=== PATIENT | female | born 2005 | race Caucasian/White ===

== ENCOUNTER 2024-08-08 21:17 | Emergency (ER) | payer OTHER, SELFPAY ==
[2024-08-08] VITALS (8 sets, daily range): BP systolic 111–139; BP diastolic 75–96; PULSE 74–84; RESP 14; TEMP 37; O2SAT 98–100; BMI 26.5
--- NOTE | 2024-08-08 21:39 | HMH.EDGENADL ---
Discharge Plan Disposition Patient Disposition: Home, Self-Care Referrals Follow up/Referrals: Provider,Referral, MD [Primary Care Provider, Medical] - See instructions Micaela Collins DO [Staff Physician, [employer]] - See instructions Activity Restrictions/Add. Instructions Additional Instructions/Restrictions: Call your family doctor to establish care for this visit to the emergency department and schedule follow-up within 48 hours to ensure improvement. If you have any worsening of your condition or any other concerning signs or symptoms, return to the emergency department or your primary care doctor for further evaluation. Clinical Impressions Clinical Impression: Intrauterine Print Language Print Language: Portuguese Discharge ED Provider: Taiwo Echavarria General Adult HPI <JERMAINE Matt - Last Filed: 08/08/24 22:00> General Chief complaint: Vaginal Bleeding Stated complaint: Tooth,? miscarriage heavy bleeding,abdominal pain Time Seen by Provider: 08/08/24 21:22 Mode of Arrival: Family Vehicle Source of Information: Patient Description of Symptoms (Recalled from ER Triage Doc. by RN): Vaginal Bleeding P presents to the ED with mutiple complaints. Pt c/o vaginal bleeding and pelvic pain X 2 days and reports that she is with LMP at the end of April. Pt also c/o L lower dental pain. History of Present Illness HPI narrative: 19-year-old G2, female presents to the emergency department with several chief complaints to include vaginal bleeding and lower abdominal pain for the last 2 days, patient has not yet had formal ultrasound, or follow-up with [employer], she has taken multiple , at home test, LMP was in April, and patient is status post uncomplicated vaginal delivery on March 09 of her first child. Patient admits to bleeding that is quite brisk, and then goes to spotting for the last several days, enough to soak through multiple pads, she denies any fever chills chest pain shortness of breath, she does admit to nausea and vomiting for the last several months, she denies any urinary type symptomatology, denies any constipation diarrhea, patient does admit to some left-sided dental pain that has been going on for the last month, she states that she previously had a dentist but due to insurance reasons can no longer get in. Patient has no other real relevant past medical history, takes no other medications at home, she is a current everyday smoker (vapes), denies any alcohol or other drug use initial triage vitals unremarkable. Patient is been utilizing Tylenol for her aches and pains especially her dental pain. Onset (ago): day(s) Related Data Allergies Allergy/AdvReac Type Severity Reaction Status Date / Time Sulfa (Sulfonamide Allergy Unknown Verified 08/08/24 21:42 Antibiotics) allergy reaction sulfamethoxazole (From Allergy Unknown Verified 08/08/24 21:42 Bactrim) allergy reaction trimethoprim (From Bactrim) Allergy Unknown Verified 08/08/24 21:42 allergy reaction PFSH <JERMAINE Matt - Last Filed: 08/08/24 22:00> [facility] Disclaimer: The information contained in this section may have been updated after the patient was seen, as this information can be updated by other users. Social History (Updated 08/08/24 @ 22:00 by JERMAINE Matt) Smoking Status: Current every day smoker alcohol intake: never current occupational status: other Travel in the last 8 weeks?: None Have you lived/traveled outside [place] in past 30 days?: No Contact w/someone who lives/traveled outside [place] past 30 days?: No Exposure to someone with infectious disease in past 14 days?: No Do you have a fever (greater than 100.4 F or 38 C)?: No Have you tested positive for COVID-19?: No Exposed to someone with COVID-19 in past 14 days?: No Do you have a sore throat?: No Do you have a cough?: No Do you have any weakness?: No Do you have any diarrhea?: No Are you experiencing any unusual bleeding?: No Do you have any muscle aches/pain?: No Do you have any abdominal pain?: No Are you experiencing loss of taste or smell?: No <JERMAINE Matt - Last Filed: 08/08/24 22:00> ROS Obtained: Yes All systems reviewed & no additional complaints except as documented Physical Exam <JERMAINE Matt - Last Filed: 08/08/24 22:00> General General appearance: alert and in no apparent distress Head Head exam: atraumatic and normocephalic Eye Eye exam: Present PERRL and EOMI ENT ENT exam: Present normal exam, normal oropharynx, mucous membranes moist and other (There is no periapical or periodontal abscess, though be amicable to drainage, there is a area of poor dentition, in the back left molar/premolar region) Neck Neck exam: Present normal inspection Chest Chest inspection: Present normal inspection and symmetric chest wall rise Respiratory Respiratory exam: Present normal lung sounds bilaterally; Absent respiratory distress Cardiovascular Cardiovascular exam: Present regular rate and normal rhythm Abdominal Exam Abdominal exam: Present soft; Absent tenderness, guarding, rebound or rigidity Extremities Exam Extremities exam: Present normal inspection Neurological Exam Neurological exam: Present alert and oriented X3 Psychiatric Psychiatric exam: Present normal affect Skin Skin exam: Present warm and dry Medical Decision Making <JERMAINE Matt - Last Filed: 08/08/24 22:00> Medical Records Medical records reviewed: Yes I reviewed the patient's medical records. Screening: Per USPSTF and CDC recommendations, given the prevalence of disease in our region, it is our hospital?s policy to screen for HIV and viral Hepatitis for all patients aged 18 and over and those with ongoing risk factors. [place] Inquiry Pt receiving controlled substance: No [place] was queried for this patient: No Vital Signs: 08/08/24 21:33 08/08/24 22:10 08/08/24 22:15 Temperature 98.6 F Temperature Source Oral Pulse Rate 74 84 Pulse Rate [Right] 84 Respiratory Rate 14 Blood Pressure 129/86 124/88 Blood Pressure [Right Arm] 139/96 H Blood Pressure Mean 99 99 Blood Pressure Mean [Right Arm] 110 Blood Pressure Source [Right Arm] Automatic Cuff Blood Pressure Position [Right Arm] Sitting 02 Sat by Pulse Oximetry 99 100 100 Oxygen Delivery Method Room Air 08/08/24 22:20 08/08/24 22:25 08/08/24 22:30 Temperature Temperature Source Pulse Rate 84 79 Pulse Rate [Right] Respiratory Rate Blood Pressure 115/76 119/75 120/91 H Blood Pressure [Right Arm] Blood Pressure Mean 89 84 96 Blood Pressure Mean [Right Arm] Blood Pressure Source [Right Arm] Blood Pressure Position [Right Arm] 02 Sat by Pulse Oximetry 100 100 Oxygen Delivery Method 08/08/24 22:35 08/08/24 22:40 Temperature Temperature Source Pulse Rate 77 77 Pulse Rate [Right] Respiratory Rate Blood Pressure 116/77 111/77 Blood Pressure [Right Arm] Blood Pressure Mean 90 86 Blood Pressure Mean [Right Arm] Blood Pressure Source [Right Arm] Blood Pressure Position [Right Arm] 02 Sat by Pulse Oximetry 98 99 Oxygen Delivery Method Lab Data Lab Results 08/08/24 21:52: Blood Type A Positive 08/08/24 21:53: WBC 7.5, RBC 4.22, Hgb 12.5, Hct 37.6, MCV 89.1, MCH 29.6, MCHC 33.2, RDW 13.8, Plt Count 169, MPV 13.2 H, Neut % (Auto) 69.5, Lymph % (Auto) 23.7, [place] % (Auto) 4.3, Eos % (Auto) 1.9, Baso % (Auto) 0.3, Neut # (Auto) 5.2, Lymph # (Auto) 1.8, Lab[place] # (Auto) 0.3, Eos # (Auto) 0.1, Baso # (Auto) 0.0, PT 11.6, INR 1.05, Sodium 136, Potassium 3.8, Chloride 98, Carbon Dioxide 26, Anion Gap 15.8 H, BUN 12, Creatinine 0.70, Estimated Creat Clear 137, Estimated GFR 106, Est GFR ( Amer) 128, Glucose 91, Calcium 9.8, Total Bilirubin 0.6, AST 27, ALT 16, Alkaline Phosphatase 61, Total Protein 8.0, Albumin 4.8, Globulin 3.2, Albumin/Globulin Ratio 1.5, HCG, Quant 3842 H 08/08/24 22:00: Urine Color Yellow, Urine Appearance Clear, Urine pH 6.0, Ur Specific [place] >= 1.030, Urine Protein Negative, Urine Glucose (UA) Negative, Urine Ketones Negative, Urine Blood 2+ A, Urine Nitrate Negative, Urine Bilirubin Negative, Urine Urobilinogen 0.2, Ur Leukocyte Esterase Negative, Urine RBC 20-50, Urine WBC 10-20, Ur Squamous Epith Cells 10-20, Urine Bacteria Trace 08/08/24 21:53 08/08/24 21:53 Orders (Tests/Meds): ORDERS Category Date Time Status ABO/RH Type Stat BBK 08/08/24 21:52 Completed POCUS Point of Care (ER Only) Stat Exams 08/08/24 22:56 Ordered Complete Blood Count Auto Diff Stat Lab 08/08/24 21:53 Completed Comprehensive Metabolic Panel Stat Lab 08/08/24 21:53 Completed HCG,Quantitative Stat Lab 08/08/24 21:53 Completed HIV Combo Stat Lab 08/08/24 21:53 Received Hepatitis C Ab Qual. W/ RFX Stat Lab 08/08/24 21:53 Received PT INR [Prothrombin Time INR] Stat Lab 08/08/24 21:53 Completed Urinalysis and Microscopic Stat Lab 08/08/24 22:00 Completed Urine Culture Stat Micro 08/08/24 22:00 Received Medical Decision Narrative: 19-year-old female presents to the emergency department with vaginal bleeding, and dental pain, differential diagnosis to include but not limited to, physiological , periodontal disease, periapical abscess, ectopic , subchorionic hematoma, acute UTI, molar , implantational bleeding, spontaneous among others. I discussed this patient case with the attending physician at shift change he will be assuming the main of the patient's care/workup. Will obtain basic laboratory studies, hCG quantitative, PT/INR, urinalysis, ABO Rh <Taiwo Echavarria MD - Last Filed: 08/08/24 23:24> Vital Signs: 08/08/24 21:33 08/08/24 22:10 08/08/24 22:15 Temperature 98.6 F Temperature Source Oral Pulse Rate 74 84 Pulse Rate [Right] 84 Respiratory Rate 14 Blood Pressure 129/86 124/88 Blood Pressure [Right Arm] 139/96 H Blood Pressure Mean 99 99 Blood Pressure Mean [Right Arm] 110 Blood Pressure Source [Right Arm] Automatic Cuff Blood Pressure Position [Right Arm] Sitting 02 Sat by Pulse Oximetry 99 100 100 Oxygen Delivery Method Room Air 08/08/24 22:20 08/08/24 22:25 08/08/24 22:30 Temperature Temperature Source Pulse Rate 84 79 Pulse Rate [Right] Respiratory Rate Blood Pressure 115/76 119/75 120/91 H Blood Pressure [Right Arm] Blood Pressure Mean 89 84 96 Blood Pressure Mean [Right Arm] Blood Pressure Source [Right Arm] Blood Pressure Position [Right Arm] 02 Sat by Pulse Oximetry 100 100 Oxygen Delivery Method 08/08/24 22:35 08/08/24 22:40 Temperature Temperature Source Pulse Rate 77 77 Pulse Rate [Right] Respiratory Rate Blood Pressure 116/77 111/77 Blood Pressure [Right Arm] Blood Pressure Mean 90 86 Blood Pressure Mean [Right Arm] Blood Pressure Source [Right Arm] Blood Pressure Position [Right Arm] 02 Sat by Pulse Oximetry 98 99 Oxygen Delivery Method Lab Data Lab Results 08/08/24 21:52: Blood Type A Positive 08/08/24 21:53: WBC 7.5, RBC 4.22, Hgb 12.5, Hct 37.6, MCV 89.1, MCH 29.6, MCHC 33.2, RDW 13.8, Plt Count 169, MPV 13.2 H, Neut % (Auto) 69.5, Lymph % (Auto) 23.7, Lab[place] % (Auto) 4.3, Eos % (Auto) 1.9, Baso % (Auto) 0.3, Neut # (Auto) 5.2, Lymph # (Auto) 1.8, [place] # (Auto) 0.3, Eos # (Auto) 0.1, Baso # (Auto) 0.0, PT 11.6, INR 1.05, Sodium 136, Potassium 3.8, Chloride 98, Carbon Dioxide 26, Anion Gap 15.8 H, BUN 12, Creatinine 0.70, Estimated Creat Clear 137, Estimated GFR 106, Est GFR ( Amer) 128, Glucose 91, Calcium 9.8, Total Bilirubin 0.6, AST 27, ALT 16, Alkaline Phosphatase 61, Total Protein 8.0, Albumin 4.8, Globulin 3.2, Albumin/Globulin Ratio 1.5, HCG, Quant 3842 H 08/08/24 22:00: Urine Color Yellow, Urine Appearance Clear, Urine pH 6.0, Ur Specific [place] >= 1.030, Urine Protein Negative, Urine Glucose (UA) Negative, Urine Ketones Negative, Urine Blood 2+ A, Urine Nitrate Negative, Urine Bilirubin Negative, Urine Urobilinogen 0.2, Ur Leukocyte Esterase Negative, Urine RBC 20-50, Urine WBC 10-20, Ur Squamous Epith Cells 10-20, Urine Bacteria Trace Orders (Tests/Meds): ORDERS Category Date Time Status ABO/RH Type Stat BBK 08/08/24 21:52 Completed POCUS Point of Care (ER Only) Stat Exams 08/08/24 22:56 Ordered Complete Blood Count Auto Diff Stat Lab 08/08/24 21:53 Completed Comprehensive Metabolic Panel Stat Lab 08/08/24 21:53 Completed HCG,Quantitative Stat Lab 08/08/24 21:53 Completed HIV Combo Stat Lab 08/08/24 21:53 Received Hepatitis C Ab Qual. W/ RFX Stat Lab 08/08/24 21:53 Received PT INR [Prothrombin Time INR] Stat Lab 08/08/24 21:53 Completed Urinalysis and Microscopic Stat Lab 08/08/24 22:00 Completed Urine Culture Stat Micro 08/08/24 22:00 Received Medical Decision Narrative: 19-year-old female presents to the emergency department with vaginal bleeding, and dental pain, differential diagnosis to include but not limited to, physiological , periodontal disease, periapical abscess, ectopic , subchorionic hematoma, acute UTI, molar , implantational bleeding, spontaneous among others. I discussed this patient case with the attending physician at shift change he will be assuming the main of the patient's care/workup. Will obtain basic laboratory studies, hCG quantitative, PT/INR, urinalysis, ABO Rh [place]: I assumed primary responsibility for this patient after signout from BRONSON. Independent interpretation of patient's workup with nonactionable hematologic labs, but hCG elevated 3800. Urinalysis unremarkable and blood type a positive. Bedside [id number] ultrasound performed. Patient has viable IUP with yolk sac. No obvious gestational sac to this point. Patient tearful, states that she had social situation where she was battling with ex over custody because he is a horrible person. Reassurance was offered, patient agreeable to outpatient follow-up. Procedures <Taiwo Echavarria MD - Last Filed: 08/08/24 23:24> Limited Ultrasound Indication:: Limited OB ultrasound Indication: Positive test Identified structures: -Uterus -Left adnexa -Right adnexa -Pouch of Yo Findings: Uterus: Tentative IUP with yolk sac Right adnexa: -Normal Left adnexa: -Normal Cul de sac: -free fluid absent Impression: -IUP: Definitive IUP with yolk sac in the fundus -Ectopic : Absent -Free fluid: Absent Images were saved to permanent archive The study was technically adequate CPT Transabdominal: 57356-95 This study was performed by me, and I personally interpreted all images/videos. Based on my clinical judgement, these images were adequate and did not necessitate further imaging Critical Care <JERMAINE Matt - Last Filed: 08/08/24 22:00> Critical Care Time Critical Care Time: No
[2024-08-08 22:09] LABS: Bilirubin,Urine Negative (Negative); Color,Urine YELLOW (Yellow); Glucose,Urine (UA) Negative (Negative); Ketones,Urine Negative (Negative); Leukocyte Esterase,Urine Negative (Negative); Microscopic, Urine URINE MICROSCOPIC (MICROSCOPIC); PH,Urine 6.0 (5.0-8.5); Protein,Urine Negative (Negative); Specific Gravity, Urine >= 1.030 (1.005-1.030); Urobilinogen,Urine 0.2 EU/dl (0.2)
[2024-08-08 22:17] LABS: Bacteria,Urine Trace /lpf; RBC,Urine 20-50 #/hpf (0-3)
[2024-08-08 22:17] LABS: Albumin Level 4.8 g/dl (3.5-5.0); Chloride 98 mmol/L (98-107); Potassium 3.8 mmoL/L (3.5-5.1); Sodium 136 mmol/L (136-145)
[2024-08-08 22:20] LABS: Alanine Aminotransferase 16 U/L (12-78); Albumin/Globulin Ratio 1.5 (1.1-1.8); Alkaline Phosphatase 61 U/L (38-126); Anion Gap 15.8 mEq/L (5-15); Aspartate Amino Transferase 27 U/L (14-36); Bilirubin,Total 0.6 mg/dl (0.2-1.3); Blood Urea Nitrogen 12 mg/dl (7-17); Calcium 9.8 mg/dl (8.4-10.2); Carbon Dioxide 26 mmol/L (22.0-30.0); Creatinine Clearance Estimated 137 mL/min (50-200); Creatinine,Serum 0.70 mg/dl (0.52-1.04); Estimated Glomerular Filt Rate 106 ml/min (>60); GFR (African American) 128 ML/MIN (>60); Globulin 3.2 g/dL (1.3-3.2); Glucose 91 mg/dl (74-100); Hematocrit 37.6 % (37.0-47.0); Hemoglobin 12.5 g/dL (12.2-16.2); Immature Granulocytes % 0.3 %; Mean Corpuscular HGB Conc 33.2 g/dL (31.8-35.4); Mean Corpuscular Hemoglobin 29.6 pg (27.0-31.2); Mean Corpuscular Volume 89.1 fl (81-99); Nucleated Red Blood Cells % 0 %; Platelet Count 169 K/mm3 (142-424); Red Blood Count 4.22 M/mm3 (4.20-5.40); Red Cell Distribution Width-SD 45.1 fL; Total Protein,Serum 8.0 g/dl (6.3-8.2); White Blood Count 7.5 K/mm3 (4.8-10.8)
[2024-08-08 22:21] LABS: INR 1.05 (0.9-1.1); Prothrombin Time 11.6 seconds (10.1-12.5)
[2024-08-08 23:16] LABS: Hepatitis C Ab Qual. W/ RFX NEGATIVE (Negative)
[2024-08-09] MEDS: LIDOCAINE 2% VISCOUS SOL 15ML UDC 15 ML PO (00:04)
[2024-08-09 00:15] VITALS: BP 148/76; PULSE 74; RESP 14; TEMP 36.6; O2SAT 100
--- NOTE | 2024-08-11 08:17 | PC.NURSE ---
Urine culture results reviewed by Dr. Hickey, no new orders received at this time.
== END 2024-08-09 00:16 | disposition home or self-care (01) ==
PROVIDERS: Physician Assistant; Emergency Provider Emergency Medicine
DX: O26.891 Other specified pregnancy related conditions, first trimester (principal); R10.2 Pelvic and perineal pain; O20.9 Hemorrhage in early pregnancy, unspecified; Z3A.01 Less than 8 weeks gestation of pregnancy
CPT/HCPCS: 80053; 81001; 84702; 85025; 85610; 86803; 86900; 86901; 87086; 87389; 99284

== ENCOUNTER 2024-08-16 14:46 | Outpatient (CLI) | payer OTHER, SELFPAY | END 2024-08-16 23:59 | disposition home or self-care (01) | LOC: LAB 14:47 | PROVIDERS: Visit Provider Nurse Practitioner Obstetrics & Gynecology | DX: Z32.01 Encounter for pregnancy test, result positive (principal); O02.1 Missed abortion | CPT/HCPCS: 36415; 84702 ==

== ENCOUNTER 2024-08-18 10:57 | Outpatient (CLI) | payer OTHER, SELFPAY ==
--- NOTE | 2024-08-18 11:00 | US_ITS ---
PROCEDURE: US TRANSVAGINAL CLINICAL INDICATION: needs for missed /miscariage COMPARISON: US POINT OF CARE US (ER ONLY) from 08/08/2024 FINDINGS: Transvaginal sonographic images of the pelvis were obtained. UTERUS: 7.9 cm x 6.2cmx 4.2cm anteverted with a combined endometrial thickness of 3.9mm. LEFT OVARY: 2.7 cmx1.7 cmx1.9cm with a volume of 4.4ml. There are multiple small follicles in the ovary. RIGHT OVARY: 2.2cmx 1.5 cmx2.2cm with a volume of 3.9ml. There are multiple small follicles in the ovary. Both ovaries are seen and appear normal. Doppler flow to both ovaries are seen. There is no fluid in the cul-de-sac. IMPRESSION: 1. Anteverted uterus normal in shape and size. The endometrium is thin. There is no evidence of retained products of conception. 2. Both ovaries are seen and appear normal. They both contain multiple small follicles. 3. No fluid in the cul-de-sac. Dictated by: Norbert Verdugo MD 08/18/2024 13:41 Norbert Verdugo MD in OV 08/18/2024 13:41
== END 2024-08-18 23:59 | disposition home or self-care (01) ==
LOC: RAD 10:58
PROVIDERS: PCP Nurse Practitioner Obstetrics & Gynecology; Visit Provider Nurse Practitioner Obstetrics & Gynecology
DX: O03.9 Complete or unspecified spontaneous abortion without complication (principal); O02.1 Missed abortion
CPT/HCPCS: 76830

== ENCOUNTER 2024-08-24 14:32 | Outpatient (CLI) | payer OTHER, SELFPAY ==
--- OUTSIDE RECORDS SUMMARY | 2024-08-24 14:33 | XMS_ITS | Clinical Summary ---
Author Organization [facility] Address [address] [place] [address] Phone Care Team Providers Care Academic Specialist Name Role Phone Kaylene Downing APRN Primary Care Physician [phone] Conditions or Problems Problem Name Problem Code Onset Date Status Entry Date Provider Comment Standard Description Annotate Atypical glandular cells on cervical Papanicolaou smear 978111508 (SNOMED CT) 03/07 Active 03/07 Kaylene Downing APRN Atypical glandular cells on cervical Papanicolaou smear Body mass index (BMI) 29.0-29.9; adult Z68.29 (ICD-10-CM) 03/01 Active 03/01 Kaylene Downing APRN Body mass index [BMI] 29.0-29.9, adult Body mass index (BMI) 29.0-29.9; adult Z68.29 (ICD-10-CM) 02/21 Correction 02/21 Kaylene Downing APRN Body mass index [BMI] 29.0-29.9, adult [facility]Do[facility] Lack of physical exercise Z72.3 (ICD-10-CM) 03/01 Active 03/01 Kaylene Downing APRN Lack of physical exercise Qualitative platelet disorder (increased MPV) 101417032 (SNOMED CT) 02/22 Active 02/22 Dallas Zarate MD Qualitative platelet disorder Body mass index (BMI) 29.0-29.9; adult Z68.29 (ICD-10-CM) 02/21 Removed 02/21 Dallas Zarate MD Body mass index [BMI] 29.0-29.9, adult Supervision of normal , first trimester 66871804 (SNOMED CT) 07/26 Resolved 07/26 Dallas Zarate MD Normal Genetic counseling [id number] 9100 (SNOMED CT) 08/23 Inactive 08/23 Dallas Zarate MD Genetic counseling done Supervision of normal 71583339 (SNOMED CT) 10/08 Inactive 10/08 Dallas Zarate MD Normal Body mass index (BMI) 28.0-28.9; adult Z68.28 (ICD-10-CM) Correction Dallas Zarate MD Body mass index [BMI] 28.0-28.9, adult Supervision of with insufficient care, third trimester 98793181 (SNOMED CT) 02/21 Active 02/21 Dallas Zarate MD High risk 36 weeks gestation of 50771459 (SNOMED CT) 02/21 Active 02/21 Dallas Zarate MD Gestation period, 36 weeks Body mass index (BMI) 28.0-28.9; adult Z68.28 (ICD-10-CM) Removed Kaylene Downing APRN Body mass index [BMI] 28.0-28.9, adult Body mass index (BMI) 28.0-28.9; adult Z68.28 (ICD-10-CM) 10/18 Correction 10/18 Kaylene Downing APRN Body mass index [BMI] 28.0-28.9, adult Body mass index (BMI) 28.0-28.9; adult Z68.28 (ICD-10-CM) 10/18 Removed 10/18 aKylene Downing APRN Body mass index [BMI] 28.0-28.9, adult Body mass index (BMI) 28.0-28.9; adult Z68.28 (ICD-10-CM) 08/23 Correction 08/23 Kaylene Downing APRN Body mass index [BMI] 28.0-28.9, adult UTI in , unspecified trimester 459063819 (SNOMED CT) 10/18 Active 10/18 Kaylene Downing APRN Urinary tract infection in Supervision of normal 73193714 (SNOMED CT) 10/08 Removed 10/08 Kaylene Downing APRN Normal 10 weeks gestation of 16882882 (SNOMED CT) 08/23 Resolved 08/23 Kaylene Downing APRN Gestation period, 10 weeks Urgency of urination 86782547 (SNOMED CT) 09/20 Active 09/20 Kaylene Downing APRN Urgent desire to urinate Genetic counseling [id number] 9100 (SNOMED CT) 08/23 Removed 08/23 Dallas Zarate MD Genetic counseling done Body mass index (BMI) 28.0-28.9; adult Z68.28 (ICD-10-CM) 08/23 Removed 08/23 Dallas Zarate MD Body mass index [BMI] 28.0-28.9, adult Body mass index (BMI) 29.0-29.9; adult Z68.29 (ICD-10-CM) 07/26 Correction 07/26 Dallas Zarate MD Body mass index [BMI] 29.0-29.9, adult 10 weeks gestation of 46404331 (SNOMED CT) 08/23 Removed 08/23 Dallas Zarate MD Gestation period, 10 weeks Rubella non-immune 242125665 (SNOMED CT) 07/29 Active 07/29 Kaylene Downing APRN Rubella non-immune Nausea and vomiting in 05251714 (SNOMED CT) 07/26 Active 07/26 Kaylene Downing APRN Vomiting of Body mass index (BMI) 29.0-29.9; adult Z68.29 (ICD-10-CM) 07/26 Removed 07/26 Kaylene Downing APRN Body mass index [BMI] 29.0-29.9, adult Screening for 590731891 (SNOMED CT) 07/13 Resolved 07/13 Kaylene Downing APRN Procedure carried out on subject Supervision of normal , first trimester 30882623 (SNOMED CT) 07/26 Removed 07/26 Kaylene Downing APRN Normal Tobacco User - VAPING 633415726 (SNOMED CT) 07/26 Active 07/26 Kaylene Downing APRN Tobacco user Screening for 960876617 (SNOMED CT) 07/13 Removed 07/13 Linda Palafox APRN Procedure carried out on subject Medications Medication Instructions Start Date Stop Date Generic Name NDC Provider MACROBID 100 MG CAPS Take 1 capsule by mouth twice a day for 5 days nitrofurantoin monohyd/m-cryst [id number] Dallas Zarate MD CEPHALEXIN 500 MG CAPS Take 1 capsule by mouth four times a day cephalexin 24623661685 Dallas Zarate MD MACROBID 100 MG CAPS Take 1 capsule by mouth twice a day for 5 days nitrofurantoin monohyd/m-cryst 54755682161 Kaylene Downing APRN ONDANSETRON 4 MG TBDP Take 1 tablet by mouth every six to eight hours as directed for nausea/vomiting ondansetron 39175276858 Dallas Zarate MD PROMETHAZINE HCL 25 MG TABS Take 1/2 to 1 tablet by mouth every six to eight hours as needed for nausea and vomiting promethazine 24040372232 Dallas Zarate MD ONDANSETRON 4 MG TBDP Take 1 tablet by mouth every six to eight hours as directed for nausea/vomiting ondansetron 88132097875 Kaylene Downing APRN PLUS 27-1 MG TABS Take 1 tablet by mouth once a day pnv,calcium 71-yyxw-ryouu acid [id number] Linda Palafox APRN Medications Administered No information available. Allergies, Adverse Reactions, Alerts Allergy Name Reaction Description Start Date Severity Statu s Provider PCN Critical Active Kaylene barber APRN SULFA Critical Active Kaylene barber APRN BACTRIM Critical Active Kaylene Gomez elisabeth CARDIOVASCULAR RADIOLOGIC TECHNOLOGIST Results Date Name Value Unit Range Flag Description Office Visit: walk in - preg iam test APPEARANCE U clear Appearan ce of Urine UA COLOR yellow Color of Uri ne Office Visit: new ob intake rm 5 PREG TST URN positive beta HC G, urine, semiquantitative Lab Report: OBSTETRIC PANEL, ANTIBODY SCREEN, RBC W/REFL ID, TITER AND A ... HEP C AB NON-REACTIVE NON-REACT LÁZARO N Hepatitis C virus Ab [Presence] in Serum HIV AB NON-REACTIVE NON-REACT LÁZARO N HIV 1 p51 Ab [Presence] in Serum by Immunoblot RUBELLA IGG <0.90 L Rubella v irus IgG Ab [Units/volume] in Serum --1st specimen HBSAG NON-REACTIVE NON-REACT LÁZARO N Hepatitis B virus surface Ag [Presence] in Serum or Plasma by Confirmatory method RPR NON-REACTIVE NON-REACT LÁZARO N Reagin Ab [Units/volume] in Serum by VDRL ABO/RH RH(D) POSITIVE blood type with RH factor ABO BLD GRP A ABO blood group ANTIBODY SCR NO ANTIBODIES DETECTED N antibody screen, serum BASO % MANU 0.3 % N basophils as percent of blood leukocytes, manual count EOS % MANU 2.0 % N eosinophil s as percent of blood leukocytes, manual count MONOCYTE % 5.1 % N Monocytes/ 100 leukocytes in Blood by Automated count LYMPH% P BLD 18.3 % N lymphocy shekhar as percent of blood leukocytes PMN % 74.3 % N Neutrophils/1 00 leukocytes in Blood by Automated count ABS BASOS 26 {Cells}/u L 0-200 N Basophils [#/volume] in Blood ABS EOS 176 {Cells}/u L 15-500 N Eosinophils [#/volume] in Blood ABS MONOS 449 {Cells}/u L 200-950 N Monocytes [#/volume] in Blood ABSLYMPHCT 1610 {Cells}/u L 850-3900 N Lymphocytes [#/volume] in Blood ABS NEUTROPH 6538 CELLS/UL 10*3/uL 0880-8897 N Neutrophils [#/volume] in Blood Lab Report: DRUG MONITOR, PA CINDY 1, SCREEN, URINE, DRUG MONITOR, BUP, SCR ... PHENCYCLIDIN NEGATIVE ng/mL <25 N Phencyc lidine [Presence] in Urine OXYCODONE NEGATIVE <100 N Oxycodone urine screening METHADONEURN NEGATIVE <100 N Methado ne [Presence] in Urine by Screen method MARIJUANAURN NEGATIVE <20 N Marijua na, cannabinoid screen Urine COCAINE UR NEGATIVE <150 N cocaine, urine BENZODIAZ UR NEGATIVE <100 N Benzodi azepines [Presence] in Urine AMPHETAMI UR NEGATIVE <500 N Ampheta mines [Presence] in Urine Office Visit: ob f/u rm 4 HSV GENITAL no Herpes si mplex virus identified in Genital specimen by Organism specific culture Lab Report: BASIC METABOLIC PANEL, CBC (H/H, RBC, INDICES, WBC, PLT), HE ... HGBA1C 5.5 % OF TOTAL HGB % <5.7 N Hemoglobin A1c/Hemoglobin, total in Blood - % MPV 13.9 fL 7.5-12.5 H Platelet hilda n volume [Entitic volume] in Blood by Rito PLATELETK/UL 160 THOUSAND/UL 10*3/uL 140-400 N platelet count RDW 12.7 % 11.0-15.0 N Erythrocyte distribution width [Ratio] by Automated count OL-MCHC 32.0 g/dL 32.0-36.0 N mean corpus cular hemoglobin concentration, rbc MCH 28.4 pg 27.0-33.0 N MCH [Entiti c mass] by Automated count MCV 88.6 fL 80.0-100. 0 N MCV [Entitic volume] by Automated count HCT 35.9 % 35.0-45.0 N Hematocrit [Volume Fraction] of Blood by Automated count HGB 11.5 g/dL 11.7-15.5 L Hemoglobin [Mass/volume] in Blood RBC M/UL 4.05 MILLION/UL 10*6/uL 3.80-5.10 N re d blood count WBC CT BLOOD 10.5 10*3/uL 3.8-10.8 N leukocy te count, blood CALCIUM 9.0 mg/dL 8.6-10.2 N Calcium [Moles/volume] in Serum or Plasma CO2 23 mmol/L 20-32 N Carbon dioxid e, total [Moles/volume] in Venous blood CHLORIDE BLD 103 mmol/L 98-110 N chloride , blood POTASSIUM 4.1 mmol/L 3.5-5.3 N Potassium [Moles/volume] in Serum or Plasma SODIUM 135 mmol/L 135-146 N Sodium [Moles/volume] in Serum or Plasma BUN/CREAT 12 (calc) 6-22 N Urea nitrogen/Creatinine [Mass Ratio] in Serum or Plasma CREATININE 0.52 mg/dL 0.50-0.96 N Creatini ne [Mass/volume] in Serum or Plasma BUN 6 mg/dL 7-25 L Urea nitrogen [Mass/volume] in Serum or Plasma GLUCOSE SER 52 mg/dL 65-99 L Glucose [Mass/volume] in Serum or Plasma Office Visit: OB FU RM 7 LABS ORDERED Urine Dip Auto 83874 Laboratory tests ordered SPEC GR URIN 1.020 Specific gravity of Urine by Test strip PH URINE 6.0 pH of Urine by Test strip GLUCOSE, URN negative Glucose [Mass/volume] in Urine by Test strip BILIRUBIN UR negative Bilirub in.total [Presence] in Urine by Test strip KETONES URN negative Ketones [Mass/volume] in Urine by Test strip BLOOD UR DIP negative blood i n urine (hemoglobin) by dipstick PROTEIN, URN negative protein , urine, semiquantitative (dipstick) UROBILINOGEN negative Urobili nogen [Presence] in Urine by Test strip NITRITE URN negative Nitrite [Presence] in Urine by Test strip WBC DIPSTK U negative Leukocy te esterase [Presence] in Urine by Test strip Plan of Care Type Date Detail Referral [facility], [address] [place] [address], [facility] Pending order Urine Dip Auto 8 1003 Pending order T1 Urine Culture Pending order T1 ThinPrep Pap w reflex HR HPV mRNA E6/E7 Pending order Urine Dip Auto 8 1003 Pending order T1 CBC no diff Pending order T1 Glucose Pending order T1 HGBA1c Pending order T1 Urine Culture Pending order T2 Group B Strep w/ Reflex Sensitivity Pending order T1 G.C. Chlamydi a Pending order T1 BMP Pending order T1 CBC with diff Pending order T1 GTT 3 Specime n () Pending order T1 HIV 1/2 Ag & Ab 4th gen -consent required Pending order T1 RPR w/ reflex to titer & confirmation Pending order Urine Dip Auto 8 1003 Pending order T1 Urine Culture Pending order Ultrasound Prena yoel Follow-up (Growth) Pending order T1 Urine Culture Pending order Urine Dip Auto 8 1003 Pending order Ultrasound Anato my w/ TV U/S if needed Pending order Urine Dip Auto 8 1003 Pending order T1 Urine Culture Pending order Genetic Counseli ng & Nuchal Translucency Pending order Urine Dip Auto 8 1003 Pending order Ultrasound Prena yoel < 14 wks Pending order T1 Hep C Ab Pending order T1 HIV 1/2 Ag & Ab 4th gen -consent required Pending order T1 Pane l (Obstetric Panel) Pending order T1 G.C. Chlamydi a Pending order T1 Drug Screen S TANDARD-Urine w/o Confirmation Pending order T1 Urine Culture Pending order Urine Dip Auto 8 1003 Pending order Test 8 1025 Pending order Test 8 1025 Pending order Urine Dip Auto 8 1003 Patient education Patient Educat ion Given Patient education Patient Educat ion Given Patient education Patient Educat ion Given Patient education Patient Educat ion Given Patient education Patient Educat ion Given Procedures Code Procedure Name Date Entry Date CPT-3075F Most recent systolic blood pressure 130-139 mm Hg CPT-3079F Most recent diastoli c blood pressure 80-89 mm Hg CPT-1159F Medication list docu mented in medical record [id number] Medication Reconciliation 4004F Patient screened for tobacco use and received tobacco cessation intervention [id number] Current every day smoker 20 05/03/20 [id number] Smoking cessation education CPT-1160F Review of all medica tions by a prescribing practitioner CPT-13126 Urine Dip Auto 39043 [facility] 395 T1 Urine Culture [facility] 36440 T1 ThinPrep Pap w reflex HR HPV mRNA E6/E 7 [facility] 483 T1 Glucose [facility] 395 T1 Urine Culture [facility] 03055 T2 Group B Strep w/ Reflex Sensitivity 05/03/12 [facility]-[id number] Medication Reconciliation CPT-3074F Most recent systolic blood pressure <130 mm Hg CPT-3079F Most recent diastoli c blood pressure 80-89 mm Hg CPT-1159F Medication list docu mented in medical record CPT-1160F Review of all medica tions by a prescribing practitioner CPT-85786 Urine Dip Auto 06444 [facility] 1759 T1 CBC no diff [facility] 496 T1 HGBA1c [facility] 11232 T1 BMP [facility] 46236 T1 G.C. Chlamydia [facility] 6399 T1 CBC with diff [facility] 26084 T1 GTT 3 Specimen () [facility] 25771 T1 HIV 1/2 Ag & Ab 4 th gen -consent required [facility] 36470 T1 RPR w/ reflex to titer & confirmation CPT-1159F Medication list docu mented in medical record CPT-3074F Most recent systolic blood pressure <130 mm Hg CPT-3078F Most recent diastoli c blood pressure <80 mm Hg CPT-1159F Medication list docu mented in medical record [id number] Medication Reconciliation SCT-[id number] Current every day smoker 20 02/12/20 4004F Patient screened for tobacco use and received tobacco cessation intervention [id number] Smoking cessation education CPT-97099 Urine Dip Auto 20317 [facility] 395 T1 Urine Culture CPT-38319 Ultrasound Follow-up (Growth) 02/11/24 [id number] SNOMED Code [id number] 8 PHQ-9 Medically Contraindicated CPT-3074F Most recent systolic blood pressure <130 mm Hg CPT-3078F Most recent diastoli c blood pressure <80 mm Hg CPT-1159F Medication list docu mented in medical record SCT-[id number] Medication Reconciliation SCT-[id number] Current every day smoker 20 02/11/08 4004F Patient screened for tobacco use and received tobacco cessation intervention [id number] Smoking cessation education CPT-1160F Review of all medica tions by a prescribing practitioner CPT-96078 Urine Dip Auto 94139 [facility] 395 T1 Urine Culture Anatomy Scan Ultrasound Anatomy w/ TV U/S if needed 02/10/29 CPT-3074F Most recent systolic blood pressure <130 mm Hg CPT-3078F Most recent diastoli c blood pressure <80 mm Hg CPT-1159F Medication list docu mented in medical record [facility]-[id number] Medication Reconciliation SCT-803674888 Current every day smoker 03/10/11 4004F Patient screened for tobacco use and received tobacco cessation intervention [id number] Smoking cessation education CPT-1160F Review of all medica tions by a prescribing practitioner CPT-58166 Urine Dip Auto 59257 [facility] 395 T1 Urine Culture Gen Coun & Nuch Genetic Counseling & Nuchal Translucen cy [facility]-[id number] Medication Reconciliation CPT-3074F Most recent systolic blood pressure <130 mm Hg CPT-3078F Most recent diastoli c blood pressure <80 mm Hg CPT-1159F Medication list docu mented in medical record CPT-1160F Review of all medica tions by a prescribing practitioner 4004F Patient screened for tobacco use and received tobacco cessation intervention CPT-53076 Urine Dip Auto 17658 CPT 46483 Ultrasound < 14 wks SCT-[id number] Medication Reconciliation 17 4004F Patient screened for tobacco use and received tobacco cessation intervention CPT-3074F Most recent systolic blood pressure <130 mm Hg CPT-3078F Most recent diastoli c blood pressure <80 mm Hg CPT-1159F Medication list docu mented in medical record CPT-1160F Review of all medica tions by a prescribing practitioner CPT-27284 Urine Dip Auto 46044 CPT-13468 Test 06113 [facility] G1543 T1 Drug Screen [place]-Urine w/o Confirmation [facility] 76689 T1 G.C. Chlamydia [facility] 395 T1 Urine Culture [facility] 8472 T1 Hep C Ab [facility] 79463 T1 HIV 1/2 Ag & Ab 4 th gen -consent required [facility] 86762 T1 Panel (Obstetric Panel) 07/26 SCT-[id number] Medication Reconciliation SCT-[id number] Never smoker SCT-[id number] Giving encouragement to exercise SCT-024228878 Dietary management education/guidance/counseling CPT-47563 Test 64812 CPT-59885 Urine Dip Auto 06929 Vital Signs Date Name Value Unit Description BMI (Body Mass Index) 29.32 kg/m2 Bod y Mass Index (Ratio) BP Diastolic 84 mm[Hg] blood pressu re, diastolic BP Systolic 136 mm[Hg] blood pressur e, systolic BSA (Body Surface Area) 1.96 b zoë surface area Heart Rate 99 /min pulse rate Height 66 [in_us] height E&M Height 167.64 cm height in cent imeters E&M Weight Measured 181 [lb_av] weight E& M Weight Measured 181 [lb_av] weight E& M Weight Measured 82.27 kg weight in kilograms E&M Body Temperature 97.6 [degF] temperat ure E&M Body Temperature 36.44 Bhavani temperat ure in centigrade E&M Respiratory Rate 16 /min respirat ory rate E&M Immunizations Vaccine Administration Date Standard Description CVX Co de Dose COVID-19 mRNA (PFR) COVID-19 mRNA (PFR) 208 Unknown COVID-19 mRNA (PFR) COVID-19 mRNA (PFR) 208 Unknown DTaP (Infanrix) DTaP (Infanrix) 20 Unkn own DTaP (Infanrix) DTaP (Infanrix) 20 Unkn own DTaP (Infanrix) DTaP (Infanrix) 20 Unkn own DTaP (Infanrix) DTaP (Infanrix) 20 Unkn own DTaP (Infanrix) DTaP (Infanrix) 20 Unkn own Influenza-LAIV Quad (FluM Influenza-LAIV Quad (FluM 149 Unknow n Influenza Quad Inj Influenza Quad Inj 150 Unknown Influenza Quad Inj Influenza Quad Inj 150 Unknown Hib (PRP-OMP; pedvax Hib (PRP-OMP; pedvax 49 Unknown Hib (PRP-OMP; pedvax Hib (PRP-OMP; pedvax 49 Unknown Hib (PRP-OMP; pedvax Hib (PRP-OMP; pedvax 49 Unknown Hib (PRP-OMP; pedvax Hib (PRP-OMP; pedvax 49 Unknown HPV9 HPV9 165 Unknown Hep A, ped/adol, 2D Hep A, ped/adol, 2D 83 Unknown Hep A, ped/adol, 2D Hep A, ped/adol, 2D 83 Unknown Hep B, ped/adol Hep B, ped/adol 08 Unkn own Hep B, ped/adol Hep B, ped/adol 08 Unkn own Hep B, ped/adol Hep B, ped/adol 08 Unkn own MCV4O (MENVEO) MCV4O (MENVEO) 136 Unknow n MCV4 (Menactra) MCV4 (Menactra) 114 Unkn own MMR MMR 03 Unknown MMR MMR 03 Unknown Polio-IPV Polio-IPV 10 Unknown Polio-IPV Polio-IPV 10 Unknown Polio-IPV Polio-IPV 10 Unknown Polio-IPV Polio-IPV 10 Unknown PCV13 PCV13 133 Unknown PCV13 PCV13 133 Unknown PCV13 PCV13 133 Unknown PCV13 PCV13 133 Unknown Tdap, Adsorbed Tdap, Adsorbed 115 Unknow n Tdap, Adsorbed Tdap, Adsorbed 115 Unknow n Varicella Varicella 21 Unknown Varicella Varicella 21 Unknown Advance Directives No information available.
== END 2024-08-24 23:59 | disposition home or self-care (01) ==
LOC: LAB 14:33
PROVIDERS: Visit Provider Nurse Practitioner Obstetrics & Gynecology
DX: Z34.90 Encounter for supervision of normal pregnancy, unspecified, unspecified trimester (principal)
CPT/HCPCS: 36415; 84702